=== PATIENT | male | born 1970 | race Caucasian/White ===

== ENCOUNTER 2016-07-08 11:57 | Emergency (ER) | payer OTHER, BC ==
[2016-07-08] MEDS ORDERED: OXYCODONE-ACETAMINOPHEN 5-325 MG TABLET PO ONE (12:06)
--- NOTE | 2016-07-08 12:06 | ER Document Report ---
ED Medical Screen (RME) - General Stated Complaint: POSSIBLE RIGHT HAND INJURY Notes: 11am today working on AC unit, which slid and a piece of welded metal burnt through his glove and made contact with his right index finger DIP. sensation intact for surrounding tissue. full ROM looks like second degree with black fabric covering the skin. 4/5 in severity, has not taken anything for pain [place] out of town, drove here by himself PMH: type 2 DM - Related Data Allergies/Adverse Reactions: No Known Allergies Allergy (Unverified 07/08/16 12:02)
[2016-07-08] MEDS ORDERED: IBUPROFEN 600 MG TABLET PO ONE (12:09)
--- NOTE | 2016-07-08 12:33 | ER Document Report ---
ED General - General Chief Complaint: Burn Stated Complaint: POSSIBLE RIGHT HAND INJURY Mode of Arrival: Ambulatory Information source: Patient TRAVEL OUTSIDE OF THE [place] IN LAST 30 DAYS: No - HPI Onset: Just prior to arrival - This 46-year-old male who sustained an injury to his right distal and lateral index finger while moving air air-conditioning compressor. - Related Data Allergies/Adverse Reactions: No Known Allergies Allergy (Unverified 07/08/16 12:02) Past Medical History - Social History Smoking Status: Never Smoker Chew tobacco use (# tins/day): No Frequency of alcohol use: Occasional Drug Abuse: None Family History: None Patient has suicidal ideation: No Patient has homicidal ideation: No Renal/ Medical History: Denies: Hx Peritoneal Dialysis Review of Systems - Review of Systems Constitutional: No symptoms reported EENT: No symptoms reported Cardiovascular: No symptoms reported Respiratory: No symptoms reported Gastrointestinal: No symptoms reported Genitourinary: No symptoms reported Male Genitourinary: No symptoms reported Musculoskeletal: No symptoms reported Skin: Other - Burn to right index finger Hematologic/Lymphatic: No symptoms reported Neurological/Psychological: No symptoms reported Physical Exam - Vital signs Vitals: Temp Pulse Resp BP Pulse Ox 98.2 F 78 20 127/83 H 98 07/08/16 12:02 07/08/16 12:02 07/08/16 12:02 07/08/16 12:02 07/08/16 12:02 Interpretation: Normal - General General appearance: Appears well, Alert - HEENT Head: Normocephalic, Atraumatic Eyes: Normal Pupils: PERRL - Respiratory Respiratory status: No respiratory distress Chest status: Nontender Breath sounds: Normal Chest palpation: Normal - Cardiovascular Rhythm: Regular Heart sounds: Normal auscultation Murmur: No - Abdominal Inspection: Normal Distension: No distension Bowel sounds: Normal Tenderness: Nontender Organomegaly: No organomegaly - Back Back: Normal, Nontender - Extremities General upper extremity: Normal inspection, Nontender, Normal color, Normal ROM , Normal temperature General lower extremity: Normal inspection, Nontender, Normal color, Normal ROM , Normal temperature, Normal weight bearing. No: Sophy's sign Hand: Other - Right index finger distal and lateral aspect first-degree burn from a soldering gun. - Neurological Neuro grossly intact: Yes Cognition: Normal Orientation: AAOx4 [place] Coma Scale Eye Opening: Spontaneous [place] Coma Scale Verbal: Oriented [place] Coma Scale Motor: Obeys Commands [place] Coma Scale Total: 15 Speech: Normal Motor strength normal: LUE, RUE, LLE, RLE Sensory: Normal - Psychological Associated symptoms: Normal affect, Normal mood - Skin Skin Temperature: Warm Skin Moisture: Dry Skin Color: Normal Course - Vital Signs Vital signs: Temp Pulse Resp BP Pulse Ox 98.2 F 78 20 127/83 H 98 07/08/16 12:02 07/08/16 12:02 07/08/16 12:02 07/08/16 12:02 07/08/16 12:02 Discharge - Discharge Clinical Impression: Burn of finger Qualifiers: Encounter type: initial encounter Laterality: right Burn degree: first degree Qualified Code(s): T23.121A - Burn of first degree of single right finger (nail ) except thumb, initial encounter Disposition: HOME, SELF-CARE Instructions: Wall ([facility]), Soap Cleansing ([facility]) Additional Instructions: Wall The seriousness of a burn is not always obvious at first. Delayed tissue damage and secondary infection may occur despite proper treatment. Proper care is very important. A burn that is third-degree may need skin grafting. Most wall, however, are simply protected with dressings until healed. Keep the burn clean. If the dressing gets wet, remove it and blot the wound dry, then apply a fresh dressing. Dressings should be changed at least once daily. Soaks to remove crusting are usually started in about two days. Wall in certain areas require stretching to prevent disabling tightness. Your doctor will advise you about this. For pain control, you may frequently apply a hand towel that has been dipped in water with ice cubes. Do not apply ice directly to the burned areas. If any signs of infection occur (swelling, redness, increasing tenderness, red streaks, tender lumps in the armpit or groin above the burn, or fever), contact the doctor immediately. Keep wound clean and dry use elevator gel to the affected extremity must follow- up with PMD in 2-3 days. Prescriptions: Naproxen Sodium [Naproxen Sodium ER] 500 mg PO Q12 PRN #20 tablet.sa PRN Reason:
[2016-07-08 13:30] VITALS: BP 129/89
== END 2016-07-08 13:28 | disposition home or self-care (01) ==
LOC: ER 11:57
DX: T23.121A Burn of first degree of single right finger (nail) except thumb, initial encounter (principal); S69.91XA Unspecified injury of right wrist, hand and finger(s), initial encounter; X58.XXXA Exposure to other specified factors, initial encounter
CPT/HCPCS: 99283